=== PATIENT | male | born 1975 | race Caucasian/White ===

== ENCOUNTER 2017-05-06 14:39 | Emergency (ER) | payer OTHER ==
[~2017-05-06] VITALS: Ht 177.8 cm; Wt 97.5 kg
[2017-05-06 15:40] LABS: Influenza A Negative (NEGATIVE); Influenza B Negative (NEGATIVE)
[2017-05-06] MEDS ORDERED: Sudogest30 MG PO (16:01)
[2017-05-06] MEDS ORDERED: Cheratussin AC118 ML PO (16:01)
[2017-05-06] MEDS ORDERED: Flonase 0.05% N16 GM (16:01)
== END 2017-05-06 16:06 | disposition home or self-care (01) ==
LOC: ER 14:39
PROVIDERS: Physician Assistant
DX: J06.9 Acute upper respiratory infection, unspecified (principal); I10 Essential (primary) hypertension
CPT/HCPCS: 87804; 99284

== ENCOUNTER 2017-06-08 04:28 | Emergency (ER) | payer OTHER ==
[~2017-06-08] VITALS: Ht 175.3 cm; Wt 68.0 kg
[~2017-06-08 04:28] MED LIST: Cheratussin AC118 ML PO; Flonase 0.05% N16 GM; Sudogest30 MG PO
== END 2017-06-08 05:57 | disposition home or self-care (01) ==
LOC: ER 04:28
DX: S70.02XA Contusion of left hip, initial encounter (principal); Z88.0 Allergy status to penicillin; V69.9XXA Occupant (driver) (passenger) of heavy transport vehicle injured in unspecified traffic accident, initial encounter
CPT/HCPCS: 72170; 73501; 73502; 99283